=== PATIENT | female | born 2000 | race Caucasian/White ===

== ENCOUNTER 2019-03-10 14:29 | Inpatient (IN) | payer OTHER ==
[~2019-03-10] VITALS: Ht 154.9 cm; Wt 49.8 kg
[2019-03-10 14:36] VITALS: BP 111/61
[2019-03-10 16:09] LABS: HEMATOCRIT 36.7 % (37.0-47.0); HEMOGLOBIN 12.4 gm/dL (12.0-15.0); MCH 29.5 pg (26.0-34.0); MCHC 33.8 g/dL (28.0-37.0); MCV 87.3 fL (80.0-100.0); MPV 9.2 fl. (7.2-11.1); NUCLEATED RBCS 0 /100WBC; PLATELET COUNT* 282 thou/uL (150-400); RBC 4.21 mil/uL (4.20-5.00); RDW-CV 12.5 % (10.5-14.5); WBC 17.7 thou/uL (4.0-11.0)
[2019-03-10 16:13] LABS: CALCIUM 9.4 mg/dL (8.5-10.1); CREATININE 0.9 mg/dL (0.6-1.3); POTASSIUM 3.7 mmol/L (3.5-5.1)
[2019-03-10 16:18] LABS: ALBUMIN 4.2 g/dL (3.4-5.0); MAGNESIUM 1.9 mg/dL (1.8-2.4); TOTAL BILIRUBIN 0.6 mg/dL (<0.1-1.0); TOTAL PROTEIN 7.6 g/dL (6.4-8.2)
[2019-03-10 16:28] LABS: ABSOLUTE LYMPHOCYTES 1.8 thou/uL (0.8-5.3); ABSOLUTE MONOCYTES 0.5 thou/uL (0.0-1.2); ABSOLUTE NEUTROPHILS 15.4 thou/uL (1.6-8.1); ATYPICAL LYMPHS 4 %; PLATELET ESTIMATE ADEQUATE
[2019-03-10 16:31] LABS: BE -3.4 mmol/L (-2 to +3); PCO2 30.7 mmHg (35.0-45.0); PO2 78.5 mmHg (75.0-100.0)
[2019-03-10 16:40] LABS: INR 1.1
[2019-03-10 16:53] LABS: URINE BILIRUBIN NEGATIVE (Negative); URINE BLOOD NEGATIVE (Negative); URINE CLARITY CLEAR; URINE COLOR YELLOW; URINE GLUCOSE-RANDOM NEGATIVE (Negative); URINE KETONES NEGATIVE (Negative); URINE LEUKOCYTES-REFLEX NEGATIVE (Negative); URINE NITRITE-REFLEX NEGATIVE (Negative); URINE PROTEIN NEGATIVE (Negative); URINE SPECIFIC GRAVITY 1.015 (1.005-1.030); URINE UROBILINOGEN 0.2 E.U./dl (0.2-1.0)
[2019-03-10 20:20] VITALS: BP 104/62
[2019-03-10 20:24] VITALS: BP 110/56
[2019-03-10 23:20] VITALS: BP 87/41
[2019-03-10 23:21] LABS: INFLUENZA A ANTIGEN Negative (Negative); INFLUENZA B ANTIGEN Negative (Negative)
[2019-03-10 23:45] VITALS: BP 101/52; BP 101/54
[2019-03-11 04:00] VITALS: BP 101/54
[2019-03-11 05:02] LABS: HEMATOCRIT 30.9 % (37.0-47.0); MCH 29.7 pg (26.0-34.0); MCHC 33.5 g/dL (28.0-37.0); MCV 88.8 fL (80.0-100.0); RBC 3.48 mil/uL (4.20-5.00); RDW-CV 12.6 % (10.5-14.5); WBC 13.8 thou/uL (4.0-11.0)
[2019-03-11 05:10] LABS: HEMOGLOBIN 10.3 gm/dL (12.0-15.0)
[2019-03-11 05:20] LABS: CALCIUM 8.6 mg/dL (8.5-10.1); CREATININE 0.7 mg/dL (0.6-1.3); MAGNESIUM 1.8 mg/dL (1.8-2.4)
[2019-03-11 07:45] VITALS: BP 90/48
[2019-03-11 11:21] VITALS: BP 94/59
[2019-03-11 15:46] VITALS: BP 101/61
[2019-03-11 20:00] VITALS: BP 97/55
[2019-03-12] VITALS: BP 103/62
[2019-03-12 04:00] VITALS: BP 103/66
[2019-03-12 07:05] VITALS: BP 104/53
--- NOTE | 2019-03-12 11:06 | CON ---
[address] [address] CONSULTATION Name: YAJAIRASANA CRESPO Room: [address] IN .R.#: [id number] Admission: 03/10/19 Attend Phys: Teodoro Easton MD Discharge: Date of : 99 Report #: [id number] THIS REPORT FOR: //name// CC: Teodoro Hinkle Jr, MD [facility] Webber INDICATION: Palpitations, tachycardia, hypotension and fever. HISTORY OF PRESENT ILLNESS: The patient is a pleasant, fairly healthy-appearing 18-year-old young lady who was admitted to the hospital yesterday with complaints of an episode that had been going on for several hours, described as fever, tachycardia, chest pain, headache/migraine, and dizziness. She reports having episodes like this frequently over the last year and a half to 2 years. She states these episodes happen approximately twice a week. Yesterday's episode she describes as being worse and was therefore seen in the Emergency Room for this. She reports a typical episode involved feeling her heart beating faster after which she started to feel warm. She develops tunnel vision. She has near syncope and on occasion syncope. The symptoms are not associated in any way with activity. The episode yesterday actually occurred after she woke up from sleeping. Cardiac enzymes are unremarkable. EKG shows sinus tachycardia with incomplete right bundle-branch block and suggestions of possible right atrial enlargement. She does report a history of a heart murmur as a child. At the time of interview, her symptoms have resolved. She was febrile on admission to the Emergency Room, but is afebrile at this time. Her tachycardia does appear to worsen with elevations in temperature. Thus far, monitor has shown sinus rhythm and sinus tachycardia and no other significant arrhythmias. She reports completing a 3-day monitor that did not show any significant dysrhythmias. She has a 30-day event monitor that she has not yet started. PAST MEDICAL HISTORY: Fairly unremarkable. She denies any chronic illnesses. PAST SURGICAL HISTORY: None. FAMILY HISTORY: Noncontributory. SOCIAL HISTORY: The patient is single. She does not smoke. She drinks alcohol rarely. She works at [employer]. ALLERGIES: None documented. MEDICATIONS: None. REVIEW OF SYSTEMS: A 14-point review of systems is positive for palpitations, [place] [address] CONSULTATION Name: SANA GATES Room: [address]#: [id number] Admission: 03/10/19 Attend Phys: Teodoro Easton MD Discharge: Date of : 99 Report #: [id number] chest discomfort, orthopnea, PND, syncope, seasonal allergies and she wears glasses. Otherwise, 14-point review of systems unremarkable. PHYSICAL EXAMINATION: VITAL SIGNS: Presently stable. Blood pressure 94/59 and pulse 78 and regular. GENERAL: This is a thin, pleasant young lady who is in no distress. Mood and affect appropriate. HEENT: The patient is wearing glasses. Extraocular muscles intact. Mucous membranes moist. NECK: Shows no jugular venous distention. There are no carotid bruits. CHEST: Reveals clear lung da silva. I do not appreciate wheezes or rales. Breath sounds slightly diminished. CARDIOVASCULAR: Reveals a regular rhythm with normal S1 and S2. I do not appreciate gallop or murmur. ABDOMEN: Reveals normal bowel sounds. The abdomen is soft and nontender. EXTREMITIES: Shows no edema. Peripheral pulses 2+ and easily palpable. SKIN: Dry. LABORATORY DATA: A 12-lead EKG shows sinus rhythm with incomplete right bundle-branch block. Questionable right atrial enlargement. Chest x-ray shows no acute cardiopulmonary abnormality. IMPRESSION AND RECOMMENDATIONS: 1. Tachycardia presently sinus and likely related to fever. Her symptoms could possibly be caused by other cardiac arrhythmia. I agree with continued telemetry monitoring at this time and 30-day event monitor as an outpatient. 2. Abnormal EKG suggesting right atrial enlargement. I would like an echocardiogram to further evaluate underlying cardiac structure and function. I hear nothing on physical examination that sounds out of the ordinary. 3. Syncope, etiology is not clear. Would continue plans for extended monitoring. Consider tilt table test as an outpatient. 4. Chest pain, etiology not clear. She does not have significant risk factors for premature coronary disease. We will follow clinically at this time. Echocardiogram ordered to evaluate for possible pericarditis, although her symptoms are not congruent with this diagnosis. <ELECTRONICALLY SIGNED> By: Cirilo Pollock MD, FACC 03/12/19 1106 1418 205Micdaryl Pollock MD, FACC /nt
[2019-03-12 11:34] VITALS: BP 104/53
[2019-03-12 12:19] VITALS: BP 97/58
[2019-03-12 16:50] VITALS: BP 109/69
--- NOTE | 2019-03-12 17:18 | CON ---
[address] [address] CONSULTATION Name: SANA GATES Room: [address] IN .R.#: [id number] Admission: 03/10/19 Attend Phys: Teodoro Easton MD Discharge: Date of : 99 Report #: [id number] THIS REPORT FOR: //name// CC: Teodoro Webber DATE OF SERVICE: 03/11/2019 HISTORY OF PRESENT ILLNESS: The patient is a 18-year-old who presented with headache, fever and chills along with chest pain. Onset was acute that occurred yesterday morning at 3 o'clock when she awoke with the headache and chest discomfort. She notes it is like a shredding sensation in her chest with difficulty breathing. No pleuritic component. No cough or sputum production. No hemoptysis. No neck pain. Her headache has been diffuse and throbbing in nature. Mild photophobia. Mild pharyngitis symptoms. No rash. No arthritis. Mild nausea without vomiting. No diarrhea. No abdominal pain, flank pain, dysuria or frequency. No arthritis. She has had no travel. She now lives with a roommate and one small child. They have had a cold. She works at [employer]. She reports being otherwise healthy. ALLERGIES: None known. MEDICATIONS: None prior to her admission. Current medications include fentanyl, Tylenol, aspirin, and was given 1 gram of ceftriaxone yesterday. PAST MEDICAL HISTORY: Migraine headaches, heart murmur as a child. FAMILY HISTORY: Noncontributory. SOCIAL HISTORY: Nonsmoker, occasional alcohol intake, no IV drug use or HIV risks. REVIEW OF SYSTEMS: Ten-point review is negative other than what has been described above. PHYSICAL EXAMINATION: VITAL SIGNS: Her maximum temperature is 102.5 degrees yesterday. She is currently afebrile, hemodynamically stable. GENERAL: She was alert and cooperative and pleasant, in no acute distress, sitting up in bed. SKIN: Without rash. No palpable adenopathy. HEENT: Eyes without scleral icterus. Pupils were equal, round and reactive to light. Mouth without mucositis. No tonsillar swelling or exudates. NECK: Supple. HEART: Regular without murmur. LUNGS: Clear [place] [address] CONSULTATION Name: SANA GATES ZAK Room: [address]#: [id number] Admission: 03/10/19 Attend Phys: Teodoro Easton MD Discharge: Date of : 99 Report #: [id number] ABDOMEN: Soft, nontender. No hepatosplenomegaly or mass. EXTREMITIES: No clubbing, cyanosis or edema. No evidence of tenosynovitis. Pulses were normal. BACK: Nontender. No CVA tenderness. Mood normal with no anxiety or depression. NEUROLOGIC: Cranial nerves intact. Strength in upper and lower extremities was normal. Sensation in upper and lower extremities normal. LABORATORY STUDIES: Blood cultures are negative to date. Sodium 139, potassium 4, bicarbonate 20, creatinine 0.7, lactate 0.6. Hemoglobin 10, white count 13.8, platelet count 203,000. Liver function tests normal. Chest x-ray clear. Urinalysis unremarkable. CRP 16, ESR 2, TSH 1.9. CT chest, abdomen and pelvis unremarkable. IMPRESSION: A 18-year-old with acute febrile illness associated with chest discomfort, possibly some pleurisy along with headache. I am suspecting viral etiology. So far, no evidence of end-organ bacterial infection. I am still awaiting blood cultures. Her influenza antigen was negative. She did have 4% atypical lymphocytes on her first CBC. We will screen for EBV, CMV and enterovirus. Continue supportive measures. We will reevaluate in the next 24 hours. If any change in condition, we will consider further workup. <ELECTRONICALLY SIGNED> By: Keshawn Terry MD 03/12/19 1718 1853 [id number] Terry MD /nt
[2019-03-14 07:07] LABS: HIV-1/HIV-2 ANTIBODY Non Reactive (Non Reactive)
--- NOTE | 2019-03-14 08:33 | EKG ---
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 : 2000 Requested By: Chitra Tay Order Number: [id number] MD: Cirilo Pollock Measurements Intervals [place] Rate: 100 P: 73 ME: 134 QRS: 78 QRSD: 92 T: -5 QT: 323 QTc: 417 Interpretive Statements Sinus tachycardia Possible biatrial enlargement RSR' in V1 or V2, right VCD or RVH Borderline T abnormalities, diffuse leads No previous ECG available for comparison Electronically Signed On 03-14-2019 8:33:42 CDT by Cirilo Pollock [email or web address] <ELECTRONICALLY SIGNED> By: Cirilo Pollock MD, FACC 03/14/19 0833 1434 1434 Cirilo Pollock MD, FAC /EPI
== END 2019-03-12 18:00 | disposition home or self-care (01) | DRG 872 ==
LOC: M.ERS 14:29 → M.2W 18:13 → M.TBA-ER 18:13 → M.2W 20:15
PROVIDERS: Personal Emergency Response Attendant; ADMIT Internal Medicine
DX: A41.89 Other specified sepsis (principal); I31.9 Disease of pericardium, unspecified; I95.9 Hypotension, unspecified; G43.909 Migraine, unspecified, not intractable, without status migrainosus; I45.10 Unspecified right bundle-branch block; R55 Syncope and collapse; R09.1 Pleurisy; Z53.29 Procedure and treatment not carried out because of patient's decision for other reasons; K12.0 Recurrent oral aphthae; Z79.899 Other long term (current) drug therapy; Z79.82 Long term (current) use of aspirin

== ENCOUNTER 2019-05-07 18:03 | Emergency (ER) | payer OTHER ==
[~2019-05-07] VITALS: Ht 154.9 cm; Wt 43.1 kg
[2019-05-07 18:35] LABS: ABSOLUTE EOSINOPHILS 0.1 thou/uL (0.0-0.7); ABSOLUTE MONOCYTES 0.8 thou/uL (0.0-1.2); ABSOLUTE NEUTROPHILS 6.9 thou/uL (1.6-8.1); BASOPHILS 0.5 %; HEMATOCRIT 36.9 % (37.0-47.0); HEMOGLOBIN 12.2 gm/dL (12.0-15.0); LYMPHOCYTES 20.1 %; MCH 28.9 pg (26.0-34.0); MCHC 33.1 g/dL (28.0-37.0); MCV 87.2 fL (80.0-100.0); MONOCYTES 8.2 %; MPV 8.3 fl. (7.2-11.1); NUCLEATED RBCS 0 /100WBC; PLATELET COUNT* 279 thou/uL (150-400); POLYS 70.2 %; RBC 4.23 mil/uL (4.20-5.00); RDW-CV 13.1 % (10.5-14.5); WBC 9.8 thou/uL (4.0-11.0)
[2019-05-07 18:45] LABS: CALCIUM 9.3 mg/dL (8.5-10.1); CREATININE 0.6 mg/dL (0.6-1.3); POTASSIUM 3.8 mmol/L (3.5-5.1)
[2019-05-07 18:50] LABS: ALBUMIN 3.9 g/dL (3.4-5.0); TOTAL BILIRUBIN 0.5 mg/dL (<0.1-1.0); TOTAL PROTEIN 7.3 g/dL (6.4-8.2)
[2019-05-07] MEDS ORDERED: VISTARIL 25 MG25 M1 PO (19:29)
[2019-05-07] MEDS ORDERED: TYLENOL WITH CO1 TA1 PO (19:29)
[2019-05-07 20:07] VITALS: BP 112/71
--- NOTE | 2019-05-08 10:52 | EKG ---
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 : 2000 Requested By: Kel Schwarz Order Number: [id number] MD: South Chen Measurements Intervals [place] Rate: 83 P: 53 CT: 149 QRS: 81 QRSD: 99 T: 1 QT: 372 QTc: 437 Interpretive Statements Sinus rhythm Borderline repolarization abnormality Baseline wander in lead(s) I,II,aVR,aVL Compared to ECG 03/10/2019 14:34:27 Sinus tachycardia no longer present Right ventricular hypertrophy no longer present Electronically Signed On 05-08-2019 10:52:12 [employer] by South Chen [email or web address] <ELECTRONICALLY SIGNED> By: South Chen MD, FACC 05/08/19 1052 1808 1808 South Chen MD, [facility] /EPI
== END 2019-05-07 20:09 | disposition home or self-care (01) ==
LOC: M.ERS 18:03
PROVIDERS: Physician Assistant
DX: F41.9 Anxiety disorder, unspecified (principal); G43.909 Migraine, unspecified, not intractable, without status migrainosus